=== PATIENT | male | born 1985 | race Caucasian/White ===

== ENCOUNTER 2024-02-16 15:09 | Emergency (ER) | payer BC, SELFPAY ==
[2024-02-16 15:12] VITALS: BP 142/84; PULSE 85; RESP 18; TEMP 36.8; O2SAT 100; BMI 40.6
[2024-02-16 15:17] VITALS: BP 142/84; PULSE 87; O2SAT 98
[2024-02-16] MEDS: ONDANSETRON 4MG/2ML VIAL 4 MG IV (15:38)
[2024-02-16] MEDS: KETOROLAC 30MG/ML VIAL 15 MG IV (15:39)
[2024-02-16] MEDS: LACTATED RINGERS 1000ML 1,000 ML 999 ML IV (15:39)
[2024-02-16 15:41] LABS: Basophils # 0.1 K/mm3 (0-0.2); Basophils % 0.8 % (0.1-2.0); Eosinophils # 0.2 K/mm3 (0.0-0.4); Eosinophils % 1.8 % (0.1-12.0); Hematocrit 45.1 % (42.0-52.0); Hemoglobin 15.4 g/dL (14.1-18.0); Lymphocytes # 3.2 K/mm3 (0.7-4.5); Lymphocytes % 28.4 % (10-50); Mean Corpuscular HGB Conc 34.1 g/dL (31.8-35.4); Mean Corpuscular Hemoglobin 29.6 pg (27.0-31.2); Mean Corpuscular Volume 86.8 fl (80-94); Mean Platelet Volume 8.1 fl (7.4-10.4); Monocytes # 1.2 K/mm3 (0.1-1.0); Monocytes % 10.7 % (1.7-9.3); Neutrophils # 6.5 K/mm3 (1.8-7.8); Neutrophils % 58.2 % (37.0-80.0); Platelet Count 283 K/mm3 (142-424); Red Blood Count 5.19 M/mm3 (4.60-6.20); Red Cell Distribution Width 13.5 % (11.5-17.5); White Blood Count 11.1 K/mm3 (4.8-10.8)
[2024-02-16 15:45] LABS: Alanine Aminotransferase 24 U/L (12-78); Albumin/Globulin Ratio 1.5 (1.1-1.8); Alkaline Phosphatase 61 U/L (38-126); Anion Gap 12.6 mEq/L (5-15); Aspartate Amino Transferase 30 U/L (17-59); Bilirubin,Total 0.7 mg/dl (0.2-1.3); Blood Urea Nitrogen 13 mg/dl (9-20); Calcium 9.2 mg/dl (8.4-10.2); Carbon Dioxide 28 mmol/L (22.0-30.0); Chloride 101 mmol/L (98-107); Creatinine Clearance Estimated 218 mL/min (50-200); Estimated Glomerular Filt Rate 95 ml/min (>60); GFR (African American) 116 ML/MIN (>60); Globulin 2.7 g/dL (1.3-3.2); Glucose 104 mg/dl (74-100); Lipase 46 U/L (23-300); Potassium 3.6 mmoL/L (3.5-5.1); Sodium 138 mmol/L (136-145); Total Protein,Serum 6.7 g/dl (6.3-8.2)
--- NOTE | 2024-02-16 15:45 | ED_ITS ---
Discharge Plan Disposition Patient Disposition: Home, Self-Care Prescriptions Prescriptions: New ondansetron 4 mg tablet,disintegrating 4 mg PO Q6H PRN (Reason: nausea and vomiting) Qty: 10 0RF Referrals Follow up/Referrals: Provider,Referral, MD [Primary Care Provider] - See instructions Activity Restrictions/Add. Instructions Additional Instructions/Restrictions: Call your family doctor to establish care for this visit to the emergency department and schedule follow-up within 48 hours to ensure improvement. If you have any worsening of your condition or any other concerning signs or symptoms, return to the emergency department or your primary care doctor for further evaluation. Imodium for diarrhea control, Zofran sent to your pharmacy for nausea control. Clinical Impressions Clinical Impression: Gastroenteritis Instructions Patient Instructions: DI for Acute Abdominal Pain Discharge ED Provider: Ankit Longo General Adult HPI General Chief complaint: Abdominal Pain Stated complaint: AO05/05 diarrhea, abd pain Time Seen by Provider: 02/16/24 15:20 Mode of Arrival: Ambulatory Source of Information: Patient Limitations: No Limitations Description of Symptoms (Recalled from ER Triage Doc. by RN): Patient reports epigastric pain with vomiting and diarrhea for 3 days. History of Present Illness HPI narrative: Please note that above description of symptoms, in this electronic medical record under categorization of recalled from ER triage doctor by RN are reflective of an initial nursing assessment, however, is not reflective of my full history and physical exam that was personally taken and clarified. Consequentially, this preceding description of symptoms, which may include the patient's categorized chief complaint in the EMR, do not reflect my personal clinical impression, and the ultimate description of history of present illness and patient stated complaints should be deferred to this section of the note. Unless stated otherwise or congruent with this section of the note, additional signs, symptoms, or incongruence should be interpreted as inaccurate with my clinical impression. Related Data Previous Rx's Medication Instructions Recorded ondansetron 4 mg disintegrating 4 mg PO Q6H PRN nausea and 02/16/24 tablet vomiting #10 tabs Allergies Allergy/AdvReac Type Severity Reaction Status Date / Time No Known Allergies Allergy Verified 02/16/24 15:24 [facility] Disclaimer: The information contained in this section may have been updated after the patient was seen, as this information can be updated by other users. Social History Smoking Status: Current every day smoker alcohol intake: never current occupational status: employed Travel in the last 8 weeks: None ROS Obtained: Yes All systems reviewed & no additional complaints except as documented Physical Exam General General appearance: alert and in no apparent distress Head Head exam: atraumatic and normocephalic Eye Eye exam: Present normal appearance, PERRL and EOMI ENT ENT exam: Present mucous membranes moist Neck Neck exam: Present normal inspection, full ROM and trachea midline Respiratory Respiratory exam: Absent respiratory distress, wheezes, stridor, accessory muscle use or prolonged expiratory phase Cardiovascular Cardiovascular exam: Present normal rhythm Abdominal Exam Abdominal exam: Present soft; Absent distention, tenderness, guarding, rebound or rigidity Extremities Exam Extremities exam: Absent edema Neurological Exam Neurological exam: Present alert, oriented X3, CN II-XII intact and normal gait; Absent motor sensory deficit Skin Skin exam: Present warm and dry; Absent diaphoresis or erythema Medical Decision Making Medical Records Medical records reviewed: Yes I reviewed the patient's medical records. [place] Inquiry Pt receiving controlled substance: No [place] was queried for this patient: No Vital Signs: 02/16/24 15:12 02/16/24 15:17 02/16/24 16:00 Temperature 98.2 F Temperature Source Oral Pulse Rate 87 79 Pulse Rate [Radial] 85 Respiratory Rate 18 Blood Pressure 142/84 H 120/70 Blood Pressure [Right Arm] 142/84 H Blood Pressure Mean 103 86 Blood Pressure Mean [Right Arm] 103 Blood Pressure Source [Right Arm] Automatic Cuff Blood Pressure Position [Right Arm] Sitting 02 Sat by Pulse Oximetry 100 98 96 Oxygen Delivery Method Room Air 02/16/24 16:31 Temperature Temperature Source Pulse Rate 79 Pulse Rate [Radial] Respiratory Rate Blood Pressure 101/66 L Blood Pressure [Right Arm] Blood Pressure Mean 77 Blood Pressure Mean [Right Arm] Blood Pressure Source [Right Arm] Blood Pressure Position [Right Arm] 02 Sat by Pulse Oximetry 96 Oxygen Delivery Method Lab Data Lab Results 02/16/24 15:20: WBC 11.1 H, RBC 5.19, Hgb 15.4, Hct 45.1, MCV 86.8, MCH 29.6, MCHC 34.1, RDW 13.5, Plt Count 283, MPV 8.1, Neut % (Auto) 58.2, Lymph % (Auto) 28.4, [place] % (Auto) 10.7 H, Eos % (Auto) 1.8, Baso % (Auto) 0.8, Neut # (Auto) 6.5, Lymph # (Auto) 3.2, [place] # (Auto) 1.2 H, Eos # (Auto) 0.2, Baso # (Auto) 0.1, Sodium 138, Potassium 3.6, Chloride 101, Carbon Dioxide 28, Anion Gap 12.6, BUN 13, Creatinine 0.90, Estimated Creat Clear 218, Estimated GFR 95, Est GFR ( Amer) 116, Glucose 104 H, Calcium 9.2, Total Bilirubin 0.7, AST 30, ALT 24, Alkaline Phosphatase 61, Total Protein 6.7, Albumin 4.0, Globulin 2.7, Albumin/Globulin Ratio 1.5, Lipase 46 02/16/24 15:20 02/16/24 15:20 Orders (Tests/Meds): ED MEDICATIONS Discontinued Medications Generic Name Dose Route Start Last Admin Trade Name Freq PRN Reason Stop Dose Admin Lactated Ringer's 1,000 mls @ 999 mls/hr 02/16/24 15:34 02/16/24 15:39 Lactated Ringer's 1000 Ml Bag IV 02/16/24 16:34 999 mls/hr .Q1H1M ONE Administration Ketorolac Tromethamine 15 mg 02/16/24 15:34 02/16/24 15:39 Ketorolac 30mg/Ml Vial IV 02/16/24 15:35 15 mg ONCE ONE Administration Ondansetron HCl 4 mg 02/16/24 15:34 02/16/24 15:38 Ondansetron 4mg/2ml Vial IV 02/16/24 15:35 4 mg ONCE ONE Administration ORDERS Category Date Time Status CBC w/Auto Diff [Complete Blood Count Auto Diff] Stat Lab 02/16/24 15:20 Completed CMP [Comprehensive Metabolic Panel] Stat Lab 02/16/24 15:20 Completed Lipase Stat Lab 02/16/24 15:20 Completed Medical Decision Narrative: Is a 38-year-old male no relevant medical history presenting with vomiting, diarrhea, syncopal episode. Patient states that he started having vomiting diarrhea 2 days prior to this visit. Shortly after initiating vomiting diarrhea, got in the shower to see if it helped him feel better. Had cramping abdominal pain, syncopized in the shower and had diarrhea as well. No blood in his stool or vomit. Patient did not come to the ER at the time, although EMS was called. Patient was a refusal. Came today because is worried about him given continued diarrhea and vomiting. Now able to keep down plenty of electrolyte containing fluids, but just feeling generally unwell. Denies fevers, chills, blood in his stool, severe abdominal pain, or any other concerns. States his biggest concern is that he is having difficulty going to work when he needs to be in the bathroom having diarrhea spells every 10 to 20 minutes and requesting work note. Patient states that his daughter recently had GI bug including vomiting diarrhea, but she is now over it. No other sick contacts or travel. History was obtained via conversation with patient. On arrival, patient hemodynamically stable, alert, oriented x4, appropriate, GCS 15, moving all extremities spontaneously, pupils equal and reactive to light. Full physical exam performed and significant for well-appearing male no acute distress. Abdomen soft, nontender, nondistended. Is normotensive, nontachycardic. Moist mucous membranes. Differential includes gastritis, enteritis, gastroenteritis, pancreatitis, among others. Patient was given fluids, Zofran, Toradol for symptomatic management and correction of underlying abnormalities. Workup independently interpreted and significant for mild leukocytosis with lymphocytic predominance. Normal chemistry and lipase. Abdominal CT was considered, but given negative exam, stable vitals, very well-appearing patient, deemed an appropriate at this time. Because patient at baseline without signs or symptoms of clinical decompensation, deemed appropriate for discharge. Results were relayed to patient who voiced understanding and were agreeable to outpatient management and follow up. I discussed my clinical impression with patient and answered all questions. At this time, the evidence for any other entities in the differential is insufficient to warrant any further testing or ED observation. This was explained as well. Advisory was given that persistent or worsening symptoms require further evaluation. I confirmed the understanding of this discussion. Critical Care Critical Care Time Critical Care Time: No
[2024-02-16 16:00] VITALS: BP 120/70; PULSE 79; O2SAT 96
[2024-02-16 16:31] VITALS: BP 101/66; PULSE 79; O2SAT 96
[2024-02-16 17:19] VITALS: BP 97/74; PULSE 73; RESP 20; TEMP 36.9; O2SAT 99
== END 2024-02-16 17:20 | disposition home or self-care (01) ==
PROVIDERS: Emergency Provider Emergency Medicine
DX: R10.13 Epigastric pain (principal); K52.9 Noninfective gastroenteritis and colitis, unspecified; R11.2 Nausea with vomiting, unspecified
CPT/HCPCS: 80053; 83690; 85025; 96361; 96374; 96375; 99284; J2405